=== PATIENT | female | born 1985 | race Two or more races ===

== ENCOUNTER 2022-01-30 16:49 | Emergency (ER) | payer OTHER ==
[2022-01-30 17:11] VITALS: RESP 18; TEMP 98.7
[2022-01-30] MEDS ORDERED: SODIUM CHLORIDE 0.9% 500 ML 500 ML IV STA (17:17)
[2022-01-30] MEDS ORDERED: diphenhydrAMINE 50 MG/ML 1 ML VIAL IVP STA (18:12)
[2022-01-30] MEDS ORDERED: ACETAMINOPHEN IV (For NPO) 1,000 MG in EMPTY BAG 1 BAG IVPB STA (18:12)
[2022-01-30] MEDS ORDERED: PYRIDOXINE 100 MG/ML 1 ML VIAL IVP ONE (18:13)
--- NOTE | 2022-01-30 18:19 | ED ---
Abdominal Pain HPI - General Source: patient, RN notes reviewed Mode of arrival: ambulatory - History of Present Illness MD Complaint: abdominal pain - Related Data Patient : Yes Number of weeks : 33 <Reshma Deluna - Last Filed: 01/30/22 19:05> <Momo Dorsey - Last Filed: 01/30/22 21:05> - General Chief Complaint: Abdominal Pain Stated Complaint: Flu Symptoms,33wks Preg Time Seen by Provider: 01/30/22 17:18 - History of Present Illness Initial Comments: This is a 36-year-old female who presents to the emergency department for upper respiratory symptoms, nausea, vomiting, and abdominal pain. Patient is 33 weeks with twins. Her FOREIGN LAW CONSULTANT is Dr. Salazar at [facility]. Her last visit was 2 days ago. Symptoms started earlier today. Her daughter test positive for influenza yesterday, and she believes that she may have caught it from her. States that she has not been able to keep anything down and feels like she is very dehydrated. Currently having lower abdominal cramping and pain in the lower back. Denies any fevers, chills, sore throat, cough, dyspnea, chest pain, palpitations, diarrhea, or headaches. (Reshma Deluna) - Related Data Allergies Allergy/AdvReac Type Severity Reaction Status Date / Time No Known Allergies Allergy Verified 01/30/22 17:11 Review of Systems ROS Other: All systems not noted in ROS Statement are negative. <Reshma Deluna - Last Filed: 01/30/22 19:05> ROS Other: All systems not noted in ROS Statement are negative. <Momo Dorsey - Last Filed: 01/30/22 21:05> ROS Statement: Those systems with pertinent positive or pertinent negative responses have been documented in the HPI. Past Medical History Past Medical History: No Reported History Past Surgical History: Section Past Psychological History: No Psychological Hx Reported Past Alcohol Use History: None Reported Past Drug Use History: None Reported <Reshma Deluna - Last Filed: 01/30/22 19:05> General Exam General appearance: alert, in distress Head exam: Present: atraumatic, normocephalic, normal inspection Respiratory exam: Present: normal lung sounds bilaterally. Absent: respiratory distress, wheezes, rales, rhonchi, stridor Cardiovascular Exam: Present: tachycardia, normal heart sounds Neurological exam: Present: alert, oriented X3, CN II-XII intact Psychiatric exam: Present: normal affect, normal mood Skin exam: Present: warm, dry, intact, normal color. Absent: rash <Reshma Deluna - Last Filed: 01/30/22 19:05> Course Vital Signs 01/30/22 17:07 Temperature 98.7 F Pulse Rate 121 H Respiratory 18 Rate Blood Pressure 134/74 O2 Sat by Pulse 99 Oximetry Medical Decision Making <Reshma Deluna - Last Filed: 01/30/22 19:05> - Lab Data Result diagrams: 01/30/22 19:00 01/30/22 19:00 <Momo Dorsey - Last Filed: 01/30/22 21:05> - Medical Decision Making This is a 36-year-old female who presents to the emergency department for upper respiratory symptoms, abdominal pain, and lower back pain. Dr. Slaazar, FOREIGN LAW CONSULTANT, was notified of her emergency department visit and current symptoms. One of the nurses from the FOREIGN LAW CONSULTANT floor came to evaluate the patient. She was hooked up to the monitor and had a cervical examination. She was found to have 2 minor contractions and there were no signs of cervical dilation. Dr. Salazar believes her symptoms are likely related to dehydration and advised fluids. If she does not improve following fluid administration, the FOREIGN LAW CONSULTANT team will reevaluate the patient. She was given Benadryl and Vitamin B6 to help with the nausea. She was also given Ofirmev to treat the pain. She qualifies for the Ofirmev as she is unable to tolerate oral intake at this time and because she is she cannot take anti-inflammatories. Case signed out to ED attending at shift completion. (Reshma Deluna) - Lab Data Lab Results 01/30/22 01/30/22 01/30/22 Range/Units 19:00 19:00 19:00 WBC 9.1 (3.8-10.6) k/uL RBC 3.35 L (3.80-5.40) m/uL Hgb 9.9 L (11.4-16.0) gm/dL Hct 28.3 L (34.0-46.0) % MCV 84.6 (80.0-100.0) fL MCH 29.6 (25.0-35.0) pg MCHC 35.0 (31.0-37.0) g/dL RDW 12.7 (11.5-15.5) % Plt Count 196 (150-450) k/uL MPV 10.2 Neutrophils % 88 % Lymphocytes % 5 % Monocytes % 6 % Eosinophils % 0 % Basophils % 0 % Neutrophils # 8.0 H (1.3-7.7) k/uL Lymphocytes # 0.4 L (1.0-4.8) k/uL Monocytes # 0.5 (0-1.0) k/uL Eosinophils # 0.0 (0-0.7) k/uL Basophils # 0.0 (0-0.2) k/uL Sodium 131 L (137-145) mmol/L Potassium 4.1 (3.5-5.1) mmol/L Chloride 108 H (98-107) mmol/L Carbon Dioxide 16 L (22-30) mmol/L Anion Gap 7 mmol/L BUN 6 L (7-17) mg/dL Creatinine 0.52 (0.52-1.04) mg/dL Est GFR (CKD-EPI)AfAm >90 (>60 ml/min/1.73 sqM) Est GFR (CKD-EPI)NonAf >90 (>60 ml/min/1.73 sqM) Glucose 72 L (74-99) mg/dL Calcium 8.3 L (8.4-10.2) mg/dL Total Bilirubin 0.3 (0.2-1.3) mg/dL AST 23 (14-36) U/L ALT 14 (4-34) U/L Alkaline Phosphatase 125 (38-126) U/L Total Protein 6.3 (6.3-8.2) g/dL Albumin 3.5 (3.5-5.0) g/dL Urine Color Urine Appearance (Clear) Urine pH (5.0-8.0) Ur Specific [place] (1.001-1.035) Urine Protein (Negative) Urine Glucose (UA) (Negative) Urine Ketones (Negative) Urine Blood (Negative) Urine Nitrite (Negative) Urine Bilirubin (Negative) Urine Urobilinogen (<2.0) mg/dL Ur Leukocyte Esterase (Negative) Urine RBC (0-5) /hpf Urine WBC (0-5) /hpf Ur Squamous Epith Cells (0-4) /hpf Urine Bacteria (None) /hpf Urine Mucus (None) /hpf Influenza Type A (PCR) Detected A (Not Detectd) Influenza Type B (PCR) Not Detected (Not Detectd) RSV (PCR) Not Detected (Not Detectd) SARS-CoV-2 (PCR) Not Detected (Not Detectd) 01/30/22 Range/Units 19:50 WBC (3.8-10.6) k/uL RBC (3.80-5.40) m/uL Hgb (11.4-16.0) gm/dL Hct (34.0-46.0) % MCV (80.0-100.0) fL MCH (25.0-35.0) pg MCHC (31.0-37.0) g/dL RDW (11.5-15.5) % Plt Count (150-450) k/uL MPV Neutrophils % % Lymphocytes % % Monocytes % % Eosinophils % % Basophils % % Neutrophils # (1.3-7.7) k/uL Lymphocytes # (1.0-4.8) k/uL Monocytes # (0-1.0) k/uL Eosinophils # (0-0.7) k/uL Basophils # (0-0.2) k/uL Sodium (137-145) mmol/L Potassium (3.5-5.1) mmol/L Chloride (98-107) mmol/L Carbon Dioxide (22-30) mmol/L Anion Gap mmol/L BUN (7-17) mg/dL Creatinine (0.52-1.04) mg/dL Est GFR (CKD-EPI)AfAm (>60 ml/min/1.73 sqM) Est GFR (CKD-EPI)NonAf (>60 ml/min/1.73 sqM) Glucose (74-99) mg/dL Calcium (8.4-10.2) mg/dL Total Bilirubin (0.2-1.3) mg/dL AST (14-36) U/L ALT (4-34) U/L Alkaline Phosphatase (38-126) U/L Total Protein (6.3-8.2) g/dL Albumin (3.5-5.0) g/dL Urine Color Yellow Urine Appearance Cloudy H (Clear) Urine pH 6.0 (5.0-8.0) Ur Specific [place] 1.029 (1.001-1.035) Urine Protein 1+ H (Negative) Urine Glucose (UA) Negative (Negative) Urine Ketones 4+ H (Negative) Urine Blood Trace H (Negative) Urine Nitrite Negative (Negative) Urine Bilirubin Negative (Negative) Urine Urobilinogen 2.0 (<2.0) mg/dL Ur Leukocyte Esterase Small H (Negative) Urine RBC 78 H (0-5) /hpf Urine WBC 2 (0-5) /hpf Ur Squamous Epith Cells 8 H (0-4) /hpf Urine Bacteria Rare H (None) /hpf Urine Mucus Few H (None) /hpf Influenza Type A (PCR) (Not Detectd) Influenza Type B (PCR) (Not Detectd) RSV (PCR) (Not Detectd) SARS-CoV-2 (PCR) (Not Detectd) Disposition <Reshma Deluna - Last Filed: 01/30/22 19:05> Is patient prescribed a controlled substance at d/c from ED?: No <Momo Dorsey - Last Filed: 01/30/22 21:05> Clinical Impression: Influenza A Disposition: HOME SELF-CARE Condition: Fair Instructions (If sedation given, give patient instructions): Influenza (DC) Referrals: None,Stated [Primary Care Provider] - 1-2 days
[2022-01-30 19:21] LABS: Basophils % (A) 0 %; Eosinophils % (A) 0 %; HCT 28.3 % (34.0-46.0); HGB 9.9 gm/dL (11.4-16.0); Lymphocytes # (A) 0.4 k/uL (1.0-4.8); Lymphocytes % (A) 5 %; MCH 29.6 pg (25.0-35.0); MCV 84.6 fL (80.0-100.0); Mean Platelet Volume 10.2; Monocytes # (A) 0.5 k/uL (0-1.0); Monocytes % (A) 6 %; Neutrophils % (A) 88 %; Platelet Count 196 k/uL (150-450); RBC 3.35 m/uL (3.80-5.40); RDW 12.7 % (11.5-15.5); WBC 9.1 k/uL (3.8-10.6)
[2022-01-30 19:28] LABS: ALT 14 U/L (4-34); AST 23 U/L (14-36); African American GFR (CKD) >90 (>60 ml/min/1.73 sqM); Albumin 3.5 g/dL (3.5-5.0); Alkaline Phosphatase 125 U/L (38-126); Anion Gap 7 mmol/L; Blood Urea Nitrogen 6 mg/dL (7-17); Calcium 8.3 mg/dL (8.4-10.2); Carbon Dioxide 16 mmol/L (22-30); Chloride 108 mmol/L (98-107); Glucose 72 mg/dL (74-99); Non-African American GFR(CKD) >90 (>60 ml/min/1.73 sqM); Potassium 4.1 mmol/L (3.5-5.1); Sodium 131 mmol/L (137-145); Total Bilirubin 0.3 mg/dL (0.2-1.3); Total Protein 6.3 g/dL (6.3-8.2)
[2022-01-30 20:01] LABS: Appearance,Urine Cloudy (Clear); Bacteria,Urine Rare /hpf; Bilirubin,Urine Negative (Negative); Blood,Urine Trace (Negative); Color,Urine Yellow; Glucose,Urine (UA) Negative (Negative); Ketones,Urine 4+ (Negative); Leukocyte Esterase,Urine Small (Negative); Mucus,Urine Few /hpf; Nitrite,Urine Negative (Negative); Protein,Urine 1+ (Negative); RBC,Urine 78 /hpf (0-5); Specific Gravity,Urine 1.029 (1.001-1.035); Squamous Epithelial Cell,Urine 8 /hpf (0-4); WBC,Urine 2 /hpf (0-5)
[2022-01-30 21:12] VITALS: BP 129/84; PULSE 100
== END 2022-01-30 21:12 | disposition home or self-care (01) ==
LOC: EC 16:49
DX: O98.513 Other viral diseases complicating pregnancy, third trimester (principal); J10.1 Influenza due to other identified influenza virus with other respiratory manifestations; Z3A.33 33 weeks gestation of pregnancy; Z20.822 Contact with and (suspected) exposure to COVID-19
CPT/HCPCS: 36415; 80053; 85025; 81001; 87636; 99284; 96374; 96375 ×2; 96361; J1200; J3415; J0131

== ENCOUNTER 2022-01-31 19:00 | Inpatient (IN) | payer OTHER ==
[2022-01-31] MEDS: BETAMET ACET-BETAMETH SOD PHOS 6 MG/ML MDV IM SCH (19:32)
[2022-01-31] MEDS ORDERED: LACTATED RINGERS 1,000 ML IV ONE (19:40)
[2022-01-31] MEDS ORDERED: CITRIC ACID-SODIUM CITRATE 15 ML CUP PO ONE (19:40)
[2022-01-31] MEDS ORDERED: AZITHROMYCIN 500 MG in SODIUM CHLORIDE 0.9% 250 ML IVPB STA (19:50)
--- NOTE | 2022-01-31 19:57 | P.HPOB ---
History of Present Illness H&P Date: 01/31/22 Chief Complaint: Gross rupture of membranes, PPROM This is a 36 year old at 33 weeks and 2 days with dichorionic diamniotic twins conceived by IVF and EDC of 03/19/2022 who presents to labor and delivery with grossly ruptured membranes with clear fluid. The patient states she thinks her water broke around 1730. She is now feeling cramping and contractions. This was complicated by gestational diabetes, diet controlled. Most recent growth ultrasound showed the fetuses were 57%ile and 40%ile with weight discordance of 6%. Of note, the patient was diagnosed with Influenza A on 01/30. Obstetric history is significant for 1 full term section secondary to non-reassuring heart tones with infant weighing 6 pounds and 4 ounces. Laboratory workup throughout the showed blood type A positive, antibody screen negative, rubella immune, VDRL non-reactive, GBS positive, HBsAG negative, HIV negative. Past Medical History Past Medical History: No Reported History Past Surgical History: Section Past Psychological History: No Psychological Hx Reported Past Alcohol Use History: None Reported Past Drug Use History: None Reported Medications and Allergies Home Medications Medication Instructions Recorded Confirmed Type Vit No.179/Iron/Folic 1 each PO DAILY 01/31/22 01/31/22 History [ Tablet] Allergies Allergy/AdvReac Type Severity Reaction Status Date / Time No Known Allergies Allergy Verified 01/31/22 19:20 Exam Intake and Output 01/31/22 01/31/22 01/31/22 06:59 14:59 22:59 Other: Weight 78.925 kg Focus exam is performed. This is a healthy gravid woman in no apparent distress. On vaginal exam, gross rupture is noted. Cervix is dilated to 5 centimeters, 70% effaced, and -2 station. Assessment and Plan Assessment: 36 y/o at 33 weeks and 2 days with di-di twins (IVF ) presenting with gross rupture of membranes at 1730. Plan: - Patient unstable for transfer. History of prior and plan is for repeat section. - NPO, IV kefzol and azithromycin ordered for surgical prophylaxis. - Proceed with repeat . Risks reviewed with the patient including risk of bleeding, infection, damage to surrounding structures including bladder/bowel/ureters, and post-operative VTE. Patient understands these risks and desires to proceed. Patient understands due to prematurity the infants will need to be transferred to a hospital with a higher level nursery or NICU. Time with Patient: Greater than 30
[2022-01-31 20:08] LABS: Basophils % (A) 0 %; Eosinophils % (A) 0 %; HCT 29.8 % (34.0-46.0); Hypochromasia Slight; Lymphocytes % (A) 12 %; MCH 29.2 pg (25.0-35.0); MCHC 33.7 g/dL (31.0-37.0); MCV 86.7 fL (80.0-100.0); Mean Platelet Volume 9.2; Monocytes # (A) 0.5 k/uL (0-1.0); Monocytes % (A) 7 %; Neutrophils # (A) 6.3 k/uL (1.3-7.7); Neutrophils % (A) 78 %; Platelet Count 202 k/uL (150-450); RBC 3.43 m/uL (3.80-5.40)
[2022-01-31] MEDS ORDERED: OXYTOCIN 30 UNITS/500 ML NS BAG IV ONE (20:18)
[2022-01-31] MEDS ORDERED: ONDANSETRON 4 MG/2 ML VIAL ONE (20:18)
[2022-01-31] MEDS ORDERED: KETOROLAC 15 MG/ML 1 ML VIAL ONE (20:18)
[2022-01-31] MEDS ORDERED: MORPHINE SULFATE (PF) 0.3 MG/0.3 ML SYR ONE (20:18)
[2022-01-31] MEDS ORDERED: PHENYLEPHRINE-0.9% NACL SYG 1,000 MCG/10 ML SYRINGE ONE (20:18)
[2022-01-31] MEDS ORDERED: NALBUPHINE 10 MG/ML (1 ML AMP) ONE (20:18)
[2022-01-31 20:28] LABS: ALT 14 U/L (4-34); AST 23 U/L (14-36); African American GFR (CKD) >90 (>60 ml/min/1.73 sqM); Blood Urea Nitrogen 8 mg/dL (7-17); LDH 367 U/L (313-618); Magnesium 1.7 mg/dL (1.6-2.3); Non-African American GFR(CKD) >90 (>60 ml/min/1.73 sqM); Partial Thromboplastin Time 27.3 sec (22.0-30.0); Prothrombin Time 10.2 sec (9.0-12.0); Uric Acid 4.1 mg/dL (3.7-7.4)
[2022-01-31 21:09] LABS: Appearance,Urine Clear (Clear); Bilirubin,Urine Negative (Negative); Blood,Urine Negative (Negative); Color,Urine Yellow; Glucose,Urine (UA) Negative (Negative); Ketones,Urine 4+ (Negative); Leukocyte Esterase,Urine Negative (Negative); Mucus,Urine Many /hpf; Nitrite,Urine Negative (Negative); Protein,Urine 2+ (Negative); RBC,Urine 11 /hpf (0-5); Specific Gravity,Urine 1.038 (1.001-1.035); Squamous Epithelial Cell,Urine 4 /hpf (0-4); WBC,Urine 6 /hpf (0-5)
[2022-01-31 21:13] LABS: Amphetamine Screen,Urine Not Detected (NotDetected); Barbiturate Screen,Urine Not Detected (NotDetected); Benzodiazepines Screen,Urine Not Detected (NotDetected); Cocaine Screen,Urine Not Detected (NotDetected); Methadone Screen, Urine Not Detected (NotDetected); Opiate Screen,Urine Not Detected (NotDetected); Oxycodone Screen, Urine Not Detected (NotDetected); Phencyclidine Screen,Urine Not Detected (NotDetected); Tricyclic Antidepressant,Urine Not Detected (NotDetected); Urn Cannabinoid Scrn Detected (NotDetected)
[2022-01-31 21:35] LABS: Creatinine,Urine Random 418.3 mg/dL; Protein/Creatinine Ratio,Urine 0.069
[2022-01-31] MEDS ORDERED: ZOLPIDEM 5 MG TAB PO PRN (21:58)
[2022-01-31] MEDS ORDERED: ONDANSETRON 4 MG/2 ML VIAL IVP PRN (21:58)
[2022-01-31] MEDS ORDERED: diphenhydrAMINE 25 MG CAP PO PRN (21:58)
[2022-01-31] MEDS ORDERED: LANOLIN CREAM 5 GM TUBE TOPICAL PRN (21:58)
[2022-01-31] MEDS ORDERED: NALOXONE 0.4 MG/ML 1 ML VIAL IV PRN (21:58)
[2022-01-31] MEDS ORDERED: METOCLOPRAMIDE 5 MG/ML 2 ML VIAL IVP PRN (21:58)
[2022-01-31] MEDS ORDERED: diphenhydrAMINE 50 MG CAP PO PRN (21:58)
[2022-01-31] MEDS ORDERED: diphenhydrAMINE 50 MG/ML 1 ML VIAL IVP PRN (21:58)
--- NOTE | 2022-01-31 21:58 | P.OP ---
Date of Procedure: 01/31/22 Preoperative Diagnosis: 1. intrauterine gestation with dichornionic diamnionitic twins 2. Premature Rupture of Membranes 3. Active Labor 4. Malpresentation of both twins 5. In Vitro Fertilization 6. Acute maternal Influenza A infection Postoperative Diagnosis: Same Procedure(s) Performed: Repeat Lower Transverse Section Implants: None Anesthesia: spinal Surgeon: Daphnie Salazar Alcoholism Worker #1: Delia Coffey Estimated Blood Loss (ml): 352 IV fluids (ml): 1,200 Urine output (ml): 20 (clear urine) Pathology: other (two placentas) Condition: stable Disposition: floor Indications for Procedure: This is a 36 year old at 33 weeks and 2 days gestation with a history of 1 prior fullterm section for non-reassuring heart tones and in vitro fertilization of this current who presents to labor and delivery after gross PPROM at 1730 for clear fluid. She is in labor at 5 centimeters dilation, 70% effacement, and -2 station. Both fetuses are found to be in breech position by bedside ultrasound. section was recommended for maternal and well-being. The risks of bleeding, infection, damage to surrounding structures including bladder/bowels/ureters, and postoperative VTE were discussed. The patient understood these risks and desires to proceed with repeat section. Operative Findings: Viable male "Twin A" in mauri breech position, AROM at 1730 for clear amniotic fluid, delivery at 0 Viable female infant "Twin B" in footling breech presentation, AROM at 2040 for clear amniotic fluid, delivery at 2040 Moderate adhesions noted from prior section Normal uterus, fallopian tubes, and ovaries Description of Procedure: The patient was taken back to the operating room where spinal anesthesia was found to be adequate. Two grams of Ancef and 500 milligrams of Azithromycin were given for infection prophylaxis. She was prepared and draped in the dorsal supine position with a leftward tilt. A Pfannenstiel skin incision was made with the scalpel. The incision was carried down to the fascia. The fascia was incised and extended laterally with Hearn scissors. The superior aspect of the fascia was grasped with the Bill clamps. The underlying rectus muscle was dissected off sharply with Hearn scissors. In a similar fashion, the inferior aspect of the fascia was elevated with Bill clamps and the rectus muscle and pyramidalis were dissected off. Excellent hemostasis was achieved with the bovie. The rectus muscle was in the midline down to the level of the pubic symphysis. Pre-peritoneal fatty tissue was bluntly dissected to expose the peritoneum. The peritoneum was found to be free of adherent bowel and entered bluntly. The peritoneal incision was extended superiorly and inferiorly to the bladder reflection with good visualization of the bladder. The bladder blade was inserted and vesicouterine peritoneum was identified. Intraabdominal survey revealed scant, clear peritoneal fluid and the thinned-out lower uterine segment. The vesicouterine peritoneum was opened with scissors and the bladder flap was developed. The bladder blade was repositioned to keep the bladder out of the operative field. The lower uterine segment was incised with a scalpel. The amniotic sac was ruptured with a hemostat and clear fluid was noted. The uterine incision was extended bluntly with lateral and upward traction. Twin A was in mauri breech position. The buttocks was delivered and each l egs were delivered using the Pinnard maneuver. The hips were delivered to the level of the scapula at which time the arms were swept through the hysterotomy using the Loveset maneuver. delivered using and finally the Qultmwxcz-Nyxbfvi-Gwqe maneuver to deliver the head. The was delivered with no difficulty. The mouth and nose were suctioned with a bulb. The cord was clamped and cut. The was handed off to the technical project coordinator. Twin B was in footling breech presentation and was delivered using similar breech maneuvers without difficulty. Twin B's cord was clamped and cut. The infant was handed over to the pediatric team. Both placentas were delivered with gental cord traction and manual massage of the uterine fundus. The cord of Twin A avulsed during delivery, however, Twin B's umbilical cord remained intact during delivery of the placentas. IV oxytocin was initiated to facilitate uterine contractions. The uterus was then exteriorized and the inside of the uterus was gently wiped with a lap sponge to assure complete removal of placental membranes. The uterine incision was closed with a 0-Polysorb suture in a running locked fashion. A second imbrication stitch with 0-Polysorb was used along the hysterotomy. The ovaries and tubes were found to be normal. The uterus, tubes, and ovaries were then gently returned to the abdominal cavity. The blood clots and fluid were wiped out of the abdomen and pelvis with moist laparotomy sponges. The uterine incision was reinspected and excellent hemostasis was noted. The fascial layer was closed with a 0-Polysorb suture. The subcutaneous layer was closed with 2-0 Plain Gut suture. The skin was closed with 4-0 Monocryl suture in a subcuticular fashion. The patient tolerated the procedure well. All the counts were correct times two. The patient was taken to the recovery room in a stable condition.
[2022-01-31] MEDS ORDERED: OXYTOCIN 30 UNITS/500 ML NS 30 UNIT in SALINE 1 500ML.BAG IV SCH (22:00)
[2022-02-01] MEDS: LACTATED RINGERS 1,000 ML IV SCH ×4 (00:10→22:49)
[2022-02-01] MEDS: ACETAMINOPHEN TAB 500 MG TAB PO SCH ×4 (00:22→22:40)
[2022-02-01] MEDS: KETOROLAC 15 MG/ML 1 ML VIAL IVP SCH ×3 (03:13→18:18)
[2022-02-01] MEDS: diphenhydrAMINE 50 MG/ML 1 ML VIAL IVP PRN ×2 (06:01→12:07)
[2022-02-01 07:14] LABS: Basophils % (A) 0 %; Eosinophils % (A) 0 %; HGB 10.3 gm/dL (11.4-16.0); Hypochromasia Slight; Lymphocytes # (A) 0.6 k/uL (1.0-4.8); Lymphocytes % (A) 6 %; MCH 29.8 pg (25.0-35.0); MCHC 34.4 g/dL (31.0-37.0); MCV 86.6 fL (80.0-100.0); Mean Platelet Volume 9.6; Monocytes # (A) 0.2 k/uL (0-1.0); Monocytes % (A) 3 %; Neutrophils # (A) 8.1 k/uL (1.3-7.7); Neutrophils % (A) 90 %; Platelet Count 192 k/uL (150-450); RBC 3.47 m/uL (3.80-5.40); RDW 12.9 % (11.5-15.5); WBC 8.9 k/uL (3.8-10.6)
[2022-02-01] MEDS: SENNOSIDES-DOCUSATE SODIUM 1 EACH TAB PO SCH ×2 (08:38→21:57)
--- NOTE | 2022-02-01 09:12 | P.PN ---
Progress Note - Text Progress Note Date: 02/01/22 (040) Anesthesia Postop day 1 Subjective: Status Post section with Duramorph. Patient seen and examined. Nausea and vomiting overnight area now abated.. VAS 2 out of 10. Mild pruritustolerable. . Gross lower extremity strength intact. . Without apparent anesthetic complications. Objective: Vital signs reviewed Heart: Regular Rate Lungs: Good chest excursion Abdomen: Appears nondistended Assessment: Status post with Duramorph postop day 1 Plan: Continue current care with your medical management. Anticipated and the Duramorph around midnight tonight, you may see increased pain needs around this time.
--- NOTE | 2022-02-01 10:55 | P.PNOBGPC ---
Subjective - Subjective Principal diagnosis: Repeat Section Interval history: The patient is doing well this morning. She had nausea and vomiting overnight that she believes was due to the pain medications because she does not usually take anything for pain at home. She feels less nauseous this morning. She reports minimal lochia. Bee was removed this morning and she is still awaiting first void. She has not yet passed flatus. She is breast-pumping and hand expressing milk. She denies chest pain, shortness of breathing, fevers, or chills overnight. She denies pain or swelling in the legs. Patient reports: Reports pain well controlled, Reports appetite poor, Reports nauseated : in NICU Objective - Vital Signs Latest vital signs: Vital Signs Temp Pulse Resp BP Pulse Ox 02/01/22 04:00 98.1 F 89 16 125/90 01/31/22 23:19 95.5 F L 75 20 123/79 96 01/31/22 22:49 72 17 111/76 99 01/31/22 22:19 76 20 115/75 96 01/31/22 22:04 91 20 105/68 100 01/31/22 21:49 72 17 104/62 97 01/31/22 21:34 81 20 98/59 98 01/31/22 21:19 97.3 F L 86 18 96/55 96 01/31/22 19:19 98.0 F 124 H 20 135/94 100 Intake and Output 01/31/22 02/01/22 02/01/22 22:59 06:59 14:59 Intake Total 500 Output Total 352 737 Balance -352 -237 Intake: IV 500 Output: Urine 600 Uretheral (Bee) 500 Output, Quantitative 352 137 Blood Loss Other: Voiding Method Indwelling Catheter Weight 78.925 kg - Exam Extremities: Present: normal Abdomen: Present: normal appearance, soft Incision: Present: normal, dressed Uterus: Present: normal, firm - Labs Labs: Abnormal Lab Results - Last 24 Hours (Table) 01/31/22 01/31/22 01/31/22 Range/Units 19:43 20:06 20:06 RBC 3.43 L (3.80-5.40) m/uL Hgb 10.0 L (11.4-16.0) gm/dL Hct 29.8 L (34.0-46.0) % Neutrophils # (1.3-7.7) k/uL Lymphocytes # (1.0-4.8) k/uL Ur Specific [place] 1.038 H (1.001-1.035) Urine Protein 2+ H (Negative) Urine Ketones 4+ H (Negative) Urine RBC 11 H (0-5) /hpf Urine WBC 6 H (0-5) /hpf Urine Mucus Many H (None) /hpf U Random Total Protein 29 H (<12) mg/dL U Marijuana (THC) Screen Detected H (NotDetected) 02/01/22 Range/Units 06:27 RBC 3.47 L (3.80-5.40) m/uL Hgb 10.3 L (11.4-16.0) gm/dL Hct 30.0 L (34.0-46.0) % Neutrophils # 8.1 H (1.3-7.7) k/uL Lymphocytes # 0.6 L (1.0-4.8) k/uL Ur Specific [place] (1.001-1.035) Urine Protein (Negative) Urine Ketones (Negative) Urine RBC (0-5) /hpf Urine WBC (0-5) /hpf Urine Mucus (None) /hpf U Random Total Protein (<12) mg/dL U Marijuana (THC) Screen (NotDetected) Assessment and Plan Assessment: 36 year old POD#1 s/p repeat LTCS at 33 weeks and 2 days 2/2 to PPROM, labor, and malposition of both twins. Plan: 1. Postoperative/. Patient meeting milestones. Continue to monitor. 2. Nausea and vomiting. Reglan, zofran, benadryl prn. Will try to wean pain medications as the patient thinks these are making her nauseous. 3. Intermittently elevated blood pressures. PIH labs on 01/31 within normal limits. Continue to monitor. The majority of blood pressures s/p delivery have been normotensive. 4. Influenza A. Supportive care. 5. Viable male and female infants. At [facility], doing well on the ventilator. Dispo: Anticipate discharge home on POD#2-3, depending on course.
[2022-02-01] MEDS: FAMOTIDINE 20 MG/2 ML VIAL IV SCH (12:07)
[2022-02-01] MEDS ORDERED: NIFEdipine 10 MG CAP PO ONE (12:12)
[2022-02-01] MEDS: NIFEdipine XL 30 MG TAB.ER.24 PO SCH (12:59)
[2022-02-01] MEDS: BETAMET ACET-BETAMETH SOD PHOS 6 MG/ML MDV IM SCH (21:57)
[2022-02-02] MEDS: ACETAMINOPHEN TAB 500 MG TAB PO SCH ×2 (01:44→05:07)
[2022-02-02] MEDS: KETOROLAC 15 MG/ML 1 ML VIAL IVP SCH ×2 (01:44→07:36)
[2022-02-02] MEDS: IBUPROFEN 600 MG TAB PO SCH ×2 (01:45→07:40)
[2022-02-02] MEDS: LACTATED RINGERS 1,000 ML IV SCH (07:36)
[2022-02-02] MEDS: NIFEdipine XL 30 MG TAB.ER.24 PO SCH (09:24)
--- NOTE | 2022-02-02 09:24 | P.PNOBGPC ---
Subjective - Subjective Principal diagnosis: Repeat Section, PPROM, Labor, Malpresentation x2 Interval history: The patient is doing well this morning and had no acute events overnight. She has no complaints this morning. She reports minimal lochia, passing flatus, voiding without difficulty, ambulating, and eating/drinking without nausea or vomiting. She is breast pumping and collecting colostrum for her infants. She denies chest pain, shortness of breathing, fevers, or chills overnight. She denies pain or swelling in the legs. She desires discharge home today. Patient reports: Reports appetite normal, Reports voiding normally, Reports pain well controlled, Reports ambulating normally [place]: doing well, in NICU Objective - Vital Signs Latest vital signs: Vital Signs Temp Pulse Resp BP Pulse Ox 02/02/22 00:00 98.7 F 71 14 116/72 95 02/01/22 20:00 97.9 F 81 14 121/82 96 02/01/22 16:00 98.1 F 71 17 132/85 99 02/01/22 13:23 117/76 02/01/22 12:00 97.9 F 68 17 154/93 97 Intake and Output 02/01/22 02/02/22 02/02/22 22:59 06:59 14:59 Output Total 150 Balance -150 Output: Urine 150 Other: # Voids 1 - Exam Extremities: Present: normal Abdomen: Present: normal appearance, soft Incision: Present: normal, dry, intact Uterus: Present: normal, firm Assessment and Plan Assessment: 36 year old POD#2 s/p repeat LTCS at 33 weeks and 2 days 2/2 to PPROM, labor, and malpresentation of both twins. Plan: 1. Postoperative/. Patient meeting milestones. 2. Nausea and vomiting. Resolved patient tolerating PO without N/V. 3. Gestational HTN. Started on Procardia XL 30 mg yesterday. Overnight blood pressures have been normotensive. 4. Influenza A. Supportive care. 5. Viable male and female infants. At [facility], doing well now extubated and off supplemental oxygen. Doing tube feeds. Dispo: Will discharge home today with ibuprofen and tylenol prn for pain. Will send a supply of Procardia XL. Follow up in the office in 1 week for BP check and 2 weeks for incision check. appointment in 6 weeks.
[2022-02-02] MEDS: SENNOSIDES-DOCUSATE SODIUM 1 EACH TAB PO SCH (09:27)
[2022-02-02] MEDS: FAMOTIDINE 20 MG/2 ML VIAL IV SCH (09:27)
--- NOTE | 2022-02-02 09:33 | P.DS ---
Providers Date of admission: 01/31/22 19:15 Expected date of discharge: 02/02/22 Attending physician: Daphnie Salazar MD Primary care physician: Stated None Hospital Course: 36 year old at 33 weeks and 2 days with di-di twins conceived by IVF who presented to [facility] with Influenza A after experiencing PPROM and in labor. Cervical exam showed the cervix was dilated to 5 cm, 80% effacted, and -2 station. On bedside ultrasound the twins were both breech. The patient was given one dose of betamethasone. section was recommended for maternal and wellbeing. The section was uncomplicated and the patient did well. The 33 week twins were transferred to the NICU at [place] for prematurity. On postoperative day 1 the patient was having significant nausea and vomiting, likely secondary to the duramorph from the spinal anesthesia. This resolved by postoperative day 2. By day 2 she was ambulating without difficulty, voiding without difficulty, tolerating PO without nausea or vomiting, passing flatus, and having minimal lochia. She desires discharge home today on postoperative day 2. She developed gestational hypertension during her stay for which Procardia XL 30 mg was started. She will continue this at home and follow up in the office in 1 week for a blood pressure check. Postoperative restrictions were reviewed including no lifting heavier than 15 lbs and pelvic rest for 6 weeks. Patient Condition at Discharge: Good Plan - Discharge Summary Discharge Rx Participant: No New Discharge Prescriptions: New Ibuprofen [Motrin] 600 mg PO Q6H PRN #30 tab PRN Reason: Moderate Pain (Scale 4 To 6) NIFEdipine XL [Procardia XL] 30 mg PO DAILY #30 tab Acetaminophen Tab [Tylenol] 1,000 mg PO Q6H PRN #30 tab PRN Reason: Mild Pain (Scale 1 To 3) Continue Vit No.179/Iron/Folic [ Tablet] 1 each PO DAILY Discharge Medication List Vit No.179/Iron/Folic [ Tablet] 1 each PO DAILY 01/31/22 [History] Acetaminophen Tab [Tylenol] 1,000 mg PO Q6H PRN #30 tab 02/02/22 [Rx] Ibuprofen [Motrin] 600 mg PO Q6H PRN #30 tab 02/02/22 [Rx] NIFEdipine XL [Procardia XL] 30 mg PO DAILY #30 tab 02/02/22 [Rx] Follow up Appointment(s)/Referral(s): Daphnie Salazar MD [STAFF PHYSICIAN] - 1 Week (Blood pressure check) Patient Instructions/Handouts: Your Baby (DC), Expression, Collection and Storage of Breast Milk (DC), How to Hold and Breastfeed Your Baby (DC), How to Increase Your Milk Supply (DC), How to Tell if Your Baby is Getting Enough Breast Milk (DC), Twins (DC), and Your Diet (DC), Breast Care for the Mother (DC), Depression (DC), Perineal Care (DC), Bleeding (DC), Hypertension During (DC), (DC), Caring for Your Breastfed Baby (DC) Activity/Diet/Wound Care/Special Instructions: No lifting heavier than 15 pounds for 6 weeks. Pelvic rest for 6 weeks. Discharge Disposition: HOME SELF-CARE
[2022-02-02 12:24] VITALS: BP 139/84; PULSE 80; RESP 16; TEMP 96.7
== END 2022-02-02 10:00 | disposition home or self-care (01) | DRG 786 ==
LOC: FBPOP 19:00 → 4FBP 19:15
PROVIDERS: ADMIT Obstetrics & Gynecology; ATTEND Obstetrics & Gynecology
PROC: 4A0HXCZ Measurement of Products of Conception, Cardiac Rate, External Approach (ICD-10-PCS; principal; 2022-01-31 20:29)
PROC: 0DNW0ZZ Release Peritoneum, Open Approach (ICD-10-PCS; principal; 2022-01-31 20:29)
PROC: 10D00Z1 Extraction of Products of Conception, Low, Open Approach (ICD-10-PCS; principal; 2022-01-31 20:29)
DX: O34.211 Maternal care for low transverse scar from previous cesarean delivery (principal); O60.14X0 Preterm labor third trimester with preterm delivery third trimester, not applicable or unspecified; O98.52 Other viral diseases complicating childbirth; O99.324 Drug use complicating childbirth; O24.420 Gestational diabetes mellitus in childbirth, diet controlled; O32.8XX0 Maternal care for other malpresentation of fetus, not applicable or unspecified; O13.4 Gestational [pregnancy-induced] hypertension without significant proteinuria, complicating childbirth; O30.043 Twin pregnancy, dichorionic/diamniotic, third trimester; O42.913 Preterm premature rupture of membranes, unspecified as to length of time between rupture and onset of labor, third trimester; L29.9 Pruritus, unspecified; F12.90 Cannabis use, unspecified, uncomplicated; J10.1 Influenza due to other identified influenza virus with other respiratory manifestations; O99.52 Diseases of the respiratory system complicating childbirth; Z37.2 Twins, both liveborn; Z3A.33 33 weeks gestation of pregnancy; Z37.0 Single live birth; O99.824 Streptococcus B carrier state complicating childbirth; O99.892 Other specified diseases and conditions complicating childbirth; N73.6 Female pelvic peritoneal adhesions (postinfective); O99.73 Diseases of the skin and subcutaneous tissue complicating the puerperium
CPT/HCPCS: 80306; 81001; 82565; 82570; 83615; 83735; 84156; 84450; 84460; 84520; 84550; 85025; 85384; 85610; 85730; 86803; 86850; 86900; 86901; 88307